=== PATIENT | female | born 1990 | race Caucasian/White ===

== ENCOUNTER 2022-04-26 09:54 | Emergency (ER) | payer OTHER, SELFPAY ==
[2022-04-26 10:01] VITALS: BP 103/72; PULSE 53; RESP 16; TEMP 36.8; O2SAT 100
--- NOTE | 2022-04-26 10:01 | ED.PSYCH ---
HPI - Psych General Chief Complaint: Psychiatric Symptoms Stated Complaint: SI Time Seen by Provider: 04/26/22 09:59 Source: patient Mode of arrival: EMS Limitations: no limitations History of Present Illness HPI Narrative: Patient is a 31-year-old female who presents to the ED via EMS with report of suicidal ideation. Patient reports a history of anxiety, depression, and PTSD. She has been on bupropion for the past 1 month, but did not feel it was working. She was switched to lithium 1 week ago by her psychiatrist. She reports she has been taking this over the past week but has had worsening depression and anxiety. She states she is just tired of dealing with everything and wants it to end. She has had intermittent suicidal ideation over the last week and saw her psychiatrist today and informed her of her thoughts, at which point EMS was called to bring the patient here. Patient does admit to thinking of ways she would hurt herself, either by slitting her wrists or overdosing on medication. She does report 1 previous suicide attempt in 2013, in which she was going to drive her car off of a bridge but stopped when she noticed kids playing in the water onto the bridge. Patient denies any homicidal ideation, AVH. Does report having diarrhea last night but denies any recent fever, chills, cough, cold symptoms, abdominal pain. Related Data Home Medications Medication Instructions Recorded Confirmed buspirone 10 mg tablet tablet 04/26/22 escitalopram oxalate 20 mg tablet tablet 04/26/22 lithium carbonate 150 mg capsule cap 04/26/22 prazosin 1 mg capsule cap 04/26/22 Allergies Allergy/AdvReac Type Severity Reaction Status Date / Time No Known Allergies Allergy Verified 04/26/22 10:11 Review of Systems Review of Systems: CONSTITUTIONAL: Denies fever, chills. ENT: Denies rhinorrhea, congestion, sore throat. CARDIOVASCULAR: Denies chest pain. RESPIRATORY: Denies cough or dyspnea. GASTROINTESTINAL: Reports diarrhea. Denies abdominal pain, nausea, vomiting, or diarrhea. PSYCHIATRIC: Reports SI, anxiety, and depression. Denies HI, AVH. All systems reviewed & are unremarkable except as noted in HPI and below PMFSH Past Medical History Medical History (Updated 04/26/22 @ 18:01 by Yanet May PA-C) Anxiety Depression PTSD (post-traumatic stress disorder) Surgical History Surgical History (Updated 04/26/22 @ 10:24 by Yanet May PA-C) No pertinent past surgical history Social History Social History (Updated 04/26/22 @ 19:38 by Yanet May PA-C) Smoking status: Never smoker Substance use type: does not use Exam Narrative: GENERAL: Well appearing, well-nourished, non-toxic, in no acute distress. HEAD: Normocephalic, atraumatic. NECK: Supple. No adenopathy, no masses. RESPIRATORY: Airway patent, respirations nonlabored. Clear to auscultation bilaterally, no rales, rhonchi, wheezing. CARDIOVASCULAR: Regular rate and rhythm without murmurs, rubs, or gallops. Radial pulses 2+ and equal bilaterally. ABDOMINAL: Soft, nontender, nondistended, no hepatosplenomegaly. Normoactive BS. MUSCULOSKELETAL: Moves all extremities. Strength/ROM intact without gross deformities. SKIN: Warm, dry, normal color. No rashes. NEURO: A&O X3. Speech clear. Cranial nerves II-XII grossly intact. Steady gait. No ataxic movements. PSYCHIATRIC: Depressed mood, tearful. Normal interaction. Course Course Emergency Course: 1115 - Patient is medically cleared to undergo psychiatric evaluation by crisis. Vital Signs Vital signs: Vital Signs Temperature 98.3 F 04/26/22 10:01 Pulse Rate 53 L 04/26/22 10:01 Respiratory Rate 16 04/26/22 10:01 Blood Pressure 103/72 04/26/22 10:01 Pulse Oximetry 100 04/26/22 10:01 Oxygen Delivery Room Air 04/26/22 10:01 Temperature 98.3 F 04/26/22 10:01 Pulse Rate 53 L 04/26/22 10:01 Respiratory Rate 16 04/26/22 10:01 Blood Pressure 103/72 04/26/22 10:01 P
[2022-04-26 10:21] LABS: Basophils Absolute Auto 0.1 K/mm3 (0.0-0.1); Eosinophils Absolute Auto 0.1 K/mm3 (0-0.3); Hematocrit 48.1 % (37.0-47.0); Hemoglobin 15.8 g/dL (12.0-15.0); Immature Granulocyte Absolute 0.02 K/mm3 (0.00-0.031); Immature Granulocyte Percent A 0.4 % (0-0.5); Lymphocytes Percent Auto 22.8 % (18.3-44.2); Mean Corpuscular HGB Conc 32.8 g/dl (32-36); Mean Corpuscular Hemoglobin 31.5 pg (26-34); Mean Platelet Volume 9.6 fl (7.4-10.4); Monocytes Absolute Auto 0.6 K/mm3 (0.1-0.6); Neutrophils Absolute Auto 3.3 K/mm3 (1.3-6.7); Neutrophils Percent Auto 62.8 % (45.5-73.1); Platelet Count Result 217 k/mm3 (150-375); Red Blood Count 5.01 M/mm3 (4.2-5.4); Red Cell Distribution Width 11.8 % (11.5-14.5); White Blood Count 5.3 K/mm3 (4.5-10.0)
--- NOTE | 2022-04-26 10:23 | PC.NURSE ---
called lab and spoke to Jessica about add on of [place].
[2022-04-26 10:34] LABS: Alanine Aminotransferase 27 U/L (6-35); Albumin Level 4.6 g/dL (3.5-5.1); Alkaline Phosphatase 57 U/L (38-126); Anion Gap 7 mmol/L (8-16); Aspartate Amino Transferase 29 U/L (14-36); Bilirubin,Total 0.4 mg/dL (0.2-1.3); Blood Urea Nitrogen 13 mg/dL (7-17); Calcium 9.3 mg/dL (8.4-10.2); Carbon Dioxide 28 mmol/L (22-30); Chloride 103 mmol/L (98-107); Estimated CRCL calculation 71 ml/min; Estimated Glomerular Filt Rate > 60; Glucose 97 mg/dL (65-110); Potassium 3.3 mmol/L (3.4-5.0); Sodium 138 mmol/L (137-145)
[2022-04-26 10:43] LABS: Appearance Urine Clear (Clear); Bilirubin Urine Negative (Negative); Color Urine Light Yellow (Yellow); Glucose Urine UA Negative (Negative); Ketones Urine Negative (Negative); Leukocyte Esterase Ur 2+ LEU/UL (Negative); Nitrate Urine Negative (Negative); Protein Urine Negative (Negative); Specific Grav Ur <= 1.005 (1.001-1.035); Urobilinogen Urine 0.2 mg/dL (<2.0)
[2022-04-26 10:44] LABS: Add Urine Microscopic? YES; Blood Urine Trace-Intact (Negative)
[2022-04-26 10:45] LABS: Amphetamine Screen Urine Negative (Negative); Barbiturate Screen Urine Negative (Negative); Benzodiazepines Screen Urine Negative (Negative); Cannabinoid Screen Urine Negative (Negative); Cocaine Screen Urine Negative (Negative); Methadone Screen Urine Negative (Negative); Opiate Screen Urine Negative (Negative); Phencyclidine Screen Urine Negative (Negative)
[2022-04-26 10:52] LABS: Acetaminophen < 10 ug/mL (10-30); Ethanol < 10 mg/dL (<10); Salicylate < 1.0 mg/dL (2-20)
[2022-04-26 10:59] LABS: Lithium < 0.2 mmol/L (0.6-1.2)
[2022-04-26 11:04] LABS: SARS-CoV-2 RNA PCR Negative
[2022-04-26 11:13] LABS: RBC Urine 0-2 /hpf (0-2); Squamous Epithelial Cell Urine Few /hpf (Few); Transitional Epi Cells Urine Rare /hpf (None Seen); WBC Urine 0-3 /hpf
[2022-04-26] MEDS: POTASSIUM CHLORIDE 20 MEQ TABLET 40 MEQ PO (11:22)
--- NOTE | 2022-04-26 11:22 | PC.NURSE ---
This Rn assumed care of pt. PT is currently laying in bed awake. Sitter is at bedside. Pt was pleasant to this RN
--- NOTE | 2022-04-26 11:44 | PC.NURSE ---
called and left message for [facility]. Charge nurse made aware
--- NOTE | 2022-04-26 11:57 | PC.NURSE ---
Sabra from [facility] called and states she will send someone out to asses pt.
--- NOTE | 2022-04-26 12:00 | PC.NURSE ---
Pt given lunch tray and is eating at this time. Informed pt that Crisis was contacted and will be out to speak with her. PT states she understands.
--- NOTE | 2022-04-26 13:09 | PC.NURSE ---
[facility] here to speak with pt
[2022-04-26 14:20] LABS: Bacteria Urine Trace /hpf
--- NOTE | 2022-04-26 14:29 | PC.NURSE ---
Crisis states they recommend pt for treatment. States they will fax information to facilities.
--- NOTE | 2022-04-26 15:25 | PC.NURSE ---
Pt requested to use her cell phone to call her roommate to inform her of pts pending placement. This RN asked Charge nurse Marsha and was given the ok for pt to use her cell phone.
--- NOTE | 2022-04-26 17:53 | PC.NURSE ---
Pt given a dinner tray.
--- NOTE | 2022-04-26 17:53 | PC.NURSE ---
[facility] has no beds available
--- NOTE | 2022-04-26 18:54 | PC.NURSE ---
Florina from [facility] called and states that there are no beds available at this time. Will contact more tonight.
[2022-04-26] MEDS: MELATONIN 3 MG TABLET PO (23:49)
[2022-04-26] MEDS: diphenhydrAMINE HCl CAP 25 MG CAPSULE PO (23:49)
[2022-04-27 01:19] VITALS: BP 117/67; PULSE 75; RESP 16; TEMP 37.3; O2SAT 100
--- NOTE | 2022-04-27 07:08 | PC.NURSE ---
[facility] and then called nelson from [facility] about how they need to talk to the crisis person about additional paperwork that they need to fill out to be able to accept the patient
[2022-04-27 07:35] VITALS: BP 95/58; PULSE 74; RESP 15; O2SAT 100
--- NOTE | 2022-04-27 11:34 | PC.NURSE ---
Faxed chart to [place] per their request at [phone]
--- NOTE | 2022-04-27 11:39 | PC.NURSE ---
Maribel called for update. re-faxing chart to [facility].
--- NOTE | 2022-04-27 12:07 | PC.NURSE ---
Ordered pt safety tray for lunch.
--- NOTE | 2022-04-27 13:20 | PC.NURSE ---
1230 SI precautions discontinued; pt. low risk per repeat [place] today.
--- NOTE | 2022-04-27 13:30 | PC.NURSE ---
[facility] to be here around 1445 for transport.
--- NOTE | 2022-04-27 13:44 | PC.NURSE ---
Report called to Claudine SAMUELS at [facility].
[2022-04-27 15:04] VITALS: BP 107/72; PULSE 82; RESP 16; O2SAT 100
== END 2022-04-27 15:08 ==
PROVIDERS: Physician Assistant; Emergency Provider Emergency Medicine; PCP Family Medicine
DX: R45.851 Suicidal ideations (principal); F32.9 Major depressive disorder, single episode, unspecified; F41.9 Anxiety disorder, unspecified; Z20.822 Contact with and (suspected) exposure to COVID-19
CPT/HCPCS: 36415; 80053; 80178; 80307; 81001; 81025; 84443; 85025; 99285; A9270; C9803; U0003; U0005